=== PATIENT | female | born 2000 | race Two or more races ===

== ENCOUNTER 2019-08-15 15:19 | Emergency (ER) | payer SELFPAY ==
[~2019-08-15] VITALS: Ht 165.1 cm; Wt 54.0 kg
[2019-08-15] MEDS ORDERED: SODIUM CHLORIDE 0.9% 1,000 ML IV ONE (16:21)
[2019-08-15] MEDS ORDERED: ACETAMINOPHEN 500MG TABLET PO ONE (16:30)
[2019-08-15 18:15] VITALS: BP 110/70
== END 2019-08-15 18:24 | disposition home or self-care (01) ==
LOC: ER 15:19
DX: U07.1 COVID-19 (principal); J11.1 Influenza due to unidentified influenza virus with other respiratory manifestations
CPT/HCPCS: 71045; 81025; 99284; J7030; 87635; C9803-CS; U0003-CS